=== PATIENT | female | born 1995 | race Caucasian/White ===

== ENCOUNTER 2018-06-09 09:26 | Day surgery (SDC) | payer MEDICAID, SELFPAY ==
--- NOTE | 2018-06-01 11:46 | PCM.HP.BLA ---
History and Physical Date of Admission: 06/09/18 Jody Underwood is a 22 year old female who presents for sterilzation consulation. Pt previously signed title 19- would like to proceed with laparosocpic bilateral salpingectomy. Pt is certain she does not want more children. Pt is currenlty on OCPs- doing well. Pt denies LARC or continuned use of BC. Pt denies CP, SOB, dizziness. Pt offers no other conerns today. PAST MEDICAL HISTORY Diagnosis Date ? NEGATIVE MEDICAL HISTORY PAST SURGICAL HISTORY Procedure Laterality Date ? TONSILLECTOMY AND ADENOIDECTOMY HX Bilateral age 14 FAMILY HISTORY Problem Relation Age of Onset ? COPD Paternal Grandmother ? Emphysema Paternal Grandmother ? COPD Paternal Grandfather ? Emphysema Paternal Grandfather Social History Marital status: Spouse name: Years of education: Number of children: 2 Social History Main Topics Smoking status: Never Smoker Smokeless tobacco: Never Used Alcohol use: No Drug use: No Sexual activity: Yes Partners with: Male control/protection: Injection Current Outpatient Prescriptions: Drospirenone-Ethinyl Estradiol (GIANVI, 28,) 3-0.02 mg per tablet Take 1 tablet by mouth once daily. ranitidine (ZANTAC) 150 mg tablet Take 1 tablet by mouth twice daily. ibuprofen (MOTRIN) 600 mg tablet Take 1 tablet by mouth every 6 hours as needed. FOR PAIN. No current facility-administered medications for this visit. Allergies As of Date: 06/01/2018 (No Known Allergies) Fully Assessed 06/01/2018 REVIEW OF SYSTEMS Abdomen: No abdominal pain, nausea, vomiting, diarrhea, or constipation. Bladder: No dysuria. Expanded ROS: GENERAL: Negative for fever Allergies and current medication updated:Yes EXAM: BP 98/56 Wt 107 lb (48.5kg) LMP 05/25/2018 GENERAL: pleasant, female in no apparent distress HEENT: Normocephalic and atraumatic NECK: full range of motion DERMATOLOGY: Normal, without lesions, non-icteric and non-hirsute CARDIAC: Regular rate and rhythm CHEST: Normal inspiratory effort NEURO: alert and oriented x3,exam grossly non-focal ASSESSMENT AND PLAN: Encounter Diagnosis ICD-10-CM 1. Request for sterilization Z30.2 2. Title 19 signed on 05/12/18. Pt declines LARC. Pt understand risk of regret 3. Pt has been counseled on risks/benefits and alternatives of surgery including but not limited to anesthesia, bleeding, infection, injury to pelvic structures including bowel, bladder, ureters and vessels. Pt wishes to proceed with surgery at this time. 4. Motrin given for post op pain Margoth Muro MD
[2018-06-09] VITALS (7 sets, daily range): BP systolic 94–141; BP diastolic 63–90; PULSE 82–103; RESP 14–18; TEMP 36.3–36.8; O2SAT 97–100; BMI 21.4
[2018-06-09 09:57] LABS: Hematocrit 40.1 % (37-47); Hemoglobin 13.3 g/dl (12.0-15.0); Mean Corp Hgb Conc 33.2 g/gl (32-36); Mean Corpuscular Hgb 28.7 pg (27.0-32.0); Mean Corpuscular Volume 86.6 fL (81-99); Mean Platelet Vol. 10.2 fl (6.2-12.0); Platelet Count 388 K/mm3 (150-450); RBC Distribution Width CV 12.4 % (11.6-14.6); Red Blood Count 4.63 M/mm3 (4.2-5.4); White Blood Count 7.1 K/mm3 (4.4-11.0)
[2018-06-09 09:59] LABS: Internal QC Validated? YES +Cl - CLEAR BKGD; Pregnancy, Urine Negative Negative
[2018-06-09 10:02] LABS: Scan Indicated on CBC? Y/N NO
--- NOTE | 2018-06-09 11:00 | FALS_PTH ---
PATIENT: TRACEE MOE LOC: [facility] [place] U#:[id number] AGE/SX: 22/F ROOM: RE06/09/[address]: Dr. Margoth Muro, MDDOB: 1995 BED: DIS: 06/09/2018 SPEC #: [id number] RECD: 06/09/18 14:10 STATUS: JJ LISA #: [id number] WHIT: 06/09/18 11:[address]: Margoth Muro DEPT: SURGICAL PATHOLOGY RECD BY: Cornel Bhat ENTERED: 06/09/18 14:38 SP TYPE: FALL TUBES OTHR DR: No Primary Care Phys Tissues: Fallopian tube Procedures: Surgery Specimen Level II HEADER OPERATION: Laparoscopic salpingectomy PRE-OP DIAGNOSIS: Request of sterilization TISSUE SUBMITTED: Bilateral fallopian tubes MICROSCOPIC DIAGNOSIS Bilateral fallopian tubes, salpingectomy: Two complete segments of fallopian tubes with no pathologic change. AM:juany 06/10/18 MICROSCOPIC DESCRIPTION Slides are reviewed. GROSS DESCRIPTION Received is one container labeled with the patient's name and designated bilateral fallopian tubes. The specimen consists of two fallopian tubes with an average length of 6 cm and has an average diameter of 0.5 cm. One fallopian tube is inked. Both fallopian tubes have normal fimbriated ends. No mass lesions are identified. Carton Gluing Machine Operator sections from both fallopian tubes are submitted in one cassette. / AM:juany 06/09/18 TC:4 CPT: 03380 x2
[2018-06-09] MEDS: Bupivacaine Mpf 0.5% 30 ML VIAL (11:52)
--- NOTE | 2018-06-09 12:15 | PCM.OPRPT ---
Report of Operation Date of Procedure: 06/09/18 Pre-Operative Diagnosis: desires sterilization Post-Operative Diagnosis: same Surgery/Procedure Performed:: Laparoscopic Bilateral salpingectomy Description of Surgical Findings:: Normal tubes and ovaries bilaterally cold roll inspector: MS Tia san Type of Anesthesia:: General Special Medications: marcaine Specimen's removed: bilateral fallopian tubes Drains: none Estimated Blood Loss (mL): 5 Description of Procedure: Operative note: After informed consent was obtained patient was taken to the operating room she was placed in supine position she was given anesthesia. She was then placed in the [facility] stirrups and she was prepped and draped in normal sterile fashion. Bladder was drained prior to the start of procedure approximately 100cc of clear yellow urine was expelled. At this time attention was turned to the vaginal portion where weighted speculum placed at posterior fornix vagina single-tooth tenaculum was used to gently grasp the internal the cervix. uterus was gently sounded to approximately 8cm. Uterine manipulator was placed without difficulty. Legs then placed in parallel with the abdomen the tenaculum and the weighted speculum were removed. 2 towel clamps were placed superior to umbilicus. After Marcaine was injected in umbilicus a small incision was made and a 5 mm trocar was placed under direct visualization. CO2 gas was used to insufflate the intra-abdominal cavity. Upon inspection no gross abnormalities uterus tubes and ovaries appeared to be normal. At this time then the RLQ and LLQ ports were placed again Marcaine was injected small incision was made a knife and the 5 mm trocar was placed. At this time then tubes were traced back to the fimbriated ends. Ligasure was used to coagulate and ligate along mesosalpynx bilaterally until tubes removed completely. Good hemostasis was appreciated. At this time procedure was deemed complete successful. The gas was desufflated on from the intra-abdominal cavity. The trochars were removed. Skin was closed using 4-0 Monocryl in a subcutaneous fashion. Dermabond glue was placed. Instrument lap and needle counts were correct ?2. The uterine manipulator was removed. Vaginal sweep was performed it was negative. There were no complications anticipated normal postoperative course for this patient. Grafts/Implants Used: none - Complications none - Admit VTE Documentation VTE Present on Admission: Yes VTE Mechan Device Prophylaxis: SCD's VTE Pharm Prophylaxis ordered?: No
--- NOTE | 2018-06-09 12:18 | OP.PCM_ITS ---
Report of Operation Date of Procedure: 06/09/18 Pre-Operative Diagnosis: desires sterilization Post-Operative Diagnosis: same Surgery/Procedure Performed:: Laparoscopic Bilateral salpingectomy Description of Surgical Findings:: Normal tubes and ovaries bilaterally pilling machine operator: MS Tia san Type of Anesthesia:: General Special Medications: marcaine Specimen's removed: bilateral fallopian tubes Drains: none Estimated Blood Loss (mL): 5 Description of Procedure: Operative note: After informed consent was obtained patient was taken to the operating room she was placed in supine position she was given anesthesia. She was then placed in the [facility] stirrups and she was prepped and draped in normal sterile fashion. Bladder was drained prior to the start of procedure approximately 100cc of clear yellow urine was expelled. At this time attention was turned to the vaginal portion where weighted speculum placed at posterior fornix vagina single-tooth tenaculum was used to gently grasp the internal the cervix. uterus was gently sounded to approximately 8cm. Uterine manipulator was placed without difficulty. Legs then placed in parallel with the abdomen the tenaculum and the weighted speculum were removed. 2 towel clamps were placed superior to umbilicus. After Marcaine was injected in umbilicus a small incision was made and a 5 mm trocar was placed under direct visualization. CO2 gas was used to insufflate the intra-abdominal cavity. Upon inspection no gross abnormalities uterus tubes and ovaries appeared to be normal. At this time then the RLQ and LLQ ports were placed again Marcaine was injected small incision was made a knife and the 5 mm trocar was placed. At this time then tubes were traced back to the fimbriated ends. Ligasure was used to coagulate and ligate along mesosalpynx bilaterally until tubes removed completely. Good hemostasis was appreciated. At this time procedure was deemed complete successful. The gas was desufflated on from the intra-abdominal cavity. The trochars were removed. Skin was closed using 4-0 Monocryl in a subcutaneous fashion. Dermabond glue was placed. Instrument lap and needle counts were correct ?2. The uterine manipulator was removed. Vaginal sweep was performed it was negative. There were no complications anticipated normal postoperative course for this patient. Grafts/Implants Used: none - Complications none - Admit VTE Documentation VTE Present on Admission: Yes VTE Mechan Device Prophylaxis: SCD's VTE Pharm Prophylaxis ordered?: No
--- NOTE | 2018-06-09 12:20 | DCINST_ITS ---
Discharge Diet: No Restrictions, - - Increase fluid intake for 48 hours. Discharge Activity: Return to Normal Activity, May Drive - when you are no longer taking narcotic pain medications., May Shower, May Take a Tub Bath - in 7 days., - - Ambulate often the next week after surgery. Additional Activity Instructions:: Nothing in the vagina for the next 5 days. Call your doctor if your incision/area has: Continuous Slow Oozing, Sudden Increased Bleeding, Increased Pain/ Swelling, Increased Redness, Foul Smelling Discharge, Swelling at the incision site Call your doctor if you observe: Fever of 101 or Higher Cleanse incision/area with: - - you have skin glue over incision sites- let soap and water run over them, dab dry. Allergies/Adverse Reactions: Allergies No Known Allergies Allergy (Verified 06/02/18 09:06) Medications to take at Discharge Ethinyl Estradiol/Drospirenone [Gianvi 3 mg-0.02 mg Tablet] 1 each PO DAILY 06/02/18 Primary Care Physician: Care Physician,No Primary [Primary Care Provider] - Test Results: Test results from this visit will be discussed in further detail at your follow- up appointment, if applicable. Please Follow Up With: Margoth Muro MD When: as scheduled
== END 2018-06-09 14:26 | disposition home or self-care (01) ==
LOC: SDC 09:27 → AC 09:29
PROVIDERS: Referring Provider Obstetrics & Gynecology; Visit Provider Obstetrics & Gynecology
PROC: (CPT 58661; principal; 2018-06-09 10:45)
DX: Z30.2 Encounter for sterilization (principal)
CPT/HCPCS: 58661; 36415; 81025; 85027; 88302; J7120; J2405

== ENCOUNTER 2018-10-13 11:40 | Day surgery (SDC) | payer MEDICAID, SELFPAY ==
[2018-06-09 09:59] VITALS: BMI 21.4
--- NOTE | 2018-09-06 10:25 | PCM.HP.BLA ---
History and Physical Date of Admission: 09/22/18 Expand All Collapse All Hide copied text Hover for details Pre-Op History and Physical ? HPI: The patient is a 22 year old female presenting for AUB- endometrial polyp on Ultrasound. Pt reports bleeding has slowed but still irregular. She is scheduled for Hysteroscopy D&C and Polypectomy with symphion at [facility], for aub and endometrial polyp on 09/22/18. Procedure discussed along with risks, benefits and complications. Other alternatives discussed for management. Consent form signed? Yes. ? ? PAST?MEDICAL?HISTORY PAST MEDICAL HISTORY Diagnosis Date ? NEGATIVE MEDICAL HISTORY ? ? ? PAST?SURGICAL?HISTORY PAST SURGICAL HISTORY Procedure Laterality Date ? SALPINGECTOMY ? 06/09/2018 ? bilateral salpingecetomy [facility]- benign pathology ? TONSILLECTOMY AND ADENOIDECTOMY HX Bilateral ? ? age 14 ? ? ? CURRENT?MEDICATIONS Current Outpatient Medications Medication Sig Dispense Refill ? ibuprofen (MOTRIN) 600 mg tablet Take 1 tablet by mouth every 6 hours as needed. FOR PAIN. 30 tablet 0 ? Drospirenone-Ethinyl Estradiol (GIANVI, 28,) 3-0.02 mg per tablet Take 1 tablet by mouth once daily. 1 Package 13 ? ranitidine (ZANTAC) 150 mg tablet Take 1 tablet by mouth twice daily. 60 tablet 2 ? No current facility-administered medications for this visit. ? ? ALLERGIES: Patient has no known allergies. ? PERSONAL HISTORY: SOCIAL?HISTORY Social History Socioeconomic History Marital status: Spouse name: Not on file Number of children: 2 Years of education: Not on file Highest education level: Not on file Social Needs Financial resource strain: Not on file Food insecurity - worry: Not on file Food insecurity - inability: Not on file Transportation needs - medical: Not on file Transportation needs - non-medical: Not on file Occupational History Not on file Tobacco Use Smoking status: Never Smoker Smokeless tobacco: Never Used Substance and Sexual Activity Alcohol use: No Drug use: No Sexual activity: Yes Partners: Male control/protection: Injection Other Topics Concerns: Not on file Social History Narrative Not on file ? FAMILY HISTORY: FAMILY?HISTORY FAMILY HISTORY Problem Relation Age of Onset ? COPD Paternal Grandmother ? ? Emphysema Paternal Grandmother ? ? COPD Paternal Grandfather ? ? Emphysema Paternal Grandfather ? ? ? REVIEW OF SYMPTOMS: negative except as noted above ? Report Summary: Overall impression: Anteverted uterus that is normal in size and contour Possible endometrial polyp noted within cavity Normal appearing bilateral ovaries No free fluid in pelvic CDS. Recommendations / therapy: Possible endometrial polyp noted. Consider hysteroscopic evaluation. Indication: Abnormal Uterine Bleeding. History: Last menstrual period: 06/09/2018. Gynecological History: Contraception: sterilization. Gynecological Ultrasonography: Uterus: normal, anteverted. Size: Longitudinal 83 mm. Anterio- posterior 38 mm. Transverse 47 mm. Volume: 77.6 ?ml. Endometrium: endometrium clearly visualized. Endometrium thickness total: 10.2 mm. Endometrial polyps: 8 mm x 6 mm x 14 mm. Right Ovary: normal. Visible. Morphology: multifollicular. Right Ovary size: 32 mm x 20 mm x 23 mm. Volume: 7.7 ml. Left Ovary: normal. Visible. Morphology: normal morphology. Left Ovary size: 27 mm x 26 mm x 17 mm. Volume: 6.2 ml. [place] / Pouch of [place]: no free fluid visible. Method: transvaginal ultrasound, color Doppler, 2 D, 3 D. Performed by:Paula Post RDMS Read by:Lizabeth Patel M.D. PHYSICAL EXAMINATION: ? VITALS: Blood pressure 98/60, weight 101 lb (45.8 kg), not currently . ? GENERAL: The patient is well nourished, well hydrated in no acute distress. , The patient is oriented to time, place, and person. NECK: normal range of motion LUNGS: Clear to auscultation bilaterally. no wheezes, rhonchi or rales HEART: Regular rate and rhythm, Normal heart sounds and No murmurs or gallops GENITALIA: exam deferred WET PREP: Not indicated ? IMPRESSION: AUB, endometrial polyp ? PLAN: Hysteroscopy, D&C, polypectomy with symphion ? Pt has been counseled on risks/benefits and alternatives of surgery including but not limited to anesthesia, bleeding, infection, injury to pelvic structures including bowel, bladder, ureters and vessels. Pt wishes to proceed with surgery at this time. ? Motrin given for post op pain ? I have reviewed and updated past medical and surgical history, medications and allergies Margoth Flores MD Office Visit on 09/06/2018
--- NOTE | 2018-09-28 16:45 | HP.PCM_ITS ---
Problem List (1) Abnormal uterine bleeding (AUB) Status: Acute (2) Endometrial polyp Status: Acute History and Physical Date of Admission: 10/13/18 Margoth Flores Physician SUPERVISOR RECLAMATION H&P Signed Encounter Date: 09/28/2018 Expand All Collapse All Hide copied text Hover for details Template added by Margoth Mcdanielntosh at 09/28/2018 4:25 PM Added by Margoth Gamezt Flores at 09/28/2018 4:25 PM Added by Margoth Gamezt Flores at 09/28/2018 4:25 PM Added by Margoth Gamezt Flores at 09/28/2018 4:40 PM Template added by Margoth Mcdanielntosh at 09/28/2018 4:25 PM Template added by Margoth Gamezt Flores at 09/28/2018 4:25 PM Template added by Margoth Gamezt Flores at 09/28/2018 4:25 PM Template added by Margoth Gamezt Flores at 09/28/2018 4:25 PM Template added by Margoth Gamezt Flores at 09/28/2018 4:25 PM Template added by Margoth Gamezt Flores at 09/28/2018 4:25 PM Added by Margoth Gamezt Flores at 09/28/2018 4:25 PM Added by Margoth Gamezt Flores at 09/28/2018 4:25 PM Added by Margoth Reevesytongt Flores at 09/28/2018 4:25 PM Added by Margoth Gamezt Flores at 09/28/2018 4:25 PM Template added by Margoth Reevesytongt Flores at 09/28/2018 4:25 PM Added by Margoth Gamezt Flores at 09/28/2018 4:25 PM Added by Margoth Gamezt Flores at 09/28/2018 4:25 PM Added by Margoth Gamezt Flores at 09/28/2018 4:25 PM Added by Margoth Gamezt Flores at 09/28/2018 4:25 PM Added by Margoth Flores at 09/28/2018 4:25 PM Added by Margoth Flores at 09/28/2018 4:25 PM Added by Margoth Flores at 09/28/2018 4:25 PM Added by Margoth Flores at 09/28/2018 4:25 PM Template added by Margoth Flores at 09/28/2018 4:25 PM Added by Margoth Flores at 09/28/2018 4:40 PM Template added by Margoth Flores at 09/28/2018 4:40 PM Jody Underwood is a 22 year old female who presents for?AUB. Pt lost?her insurance when her previous surgery was scheduled. ?Patient has history of abnormal uterine bleeding intermenstrual spotting, on ultrasound endometrial polyp was identified. ?Patient reports she is bleeding most of the month heavy at times.??Patient would like to proceed with hysteroscopy D&C polypectomy with the?symphion. ? PAST?MEDICAL?HISTORY PAST MEDICAL HISTORY Diagnosis Date ? NEGATIVE MEDICAL HISTORY ? ? PAST?SURGICAL?HISTORY PAST SURGICAL HISTORY Procedure Laterality Date ? SALPINGECTOMY ? 06/09/2018 ? bilateral salpingecetomy [facility]- benign pathology ? TONSILLECTOMY AND ADENOIDECTOMY HX Bilateral ? ? age 14 ? FAMILY?HISTORY FAMILY HISTORY Problem Relation Age of Onset ? COPD Paternal Grandmother ? ? Emphysema Paternal Grandmother ? ? COPD Paternal Grandfather ? ? Emphysema Paternal Grandfather ? ? SOCIAL?HISTORY Social History ??Socioeconomic History ?Marital status: ?Spouse name: Not on file ?Number of children: 2 ?Years of education: Not on file ?Highest education level: Not on file ??Social Needs ?Financial resource strain: Not on file ?Food insecurity - worry: Not on file ?Food insecurity - inability: Not on file ?Transportation needs - medical: Not on file ?Transportation needs - non-medical: Not on file ??Occupational History ?Not on file ??Tobacco Use ?Smoking status: Never Smoker ?Smokeless tobacco: Never Used ??Substance and Sexual Activity ?Alcohol use: No ?Drug use: No ?Sexual activity: Yes ?Partners: Male ? control/protection: Injection ??Other Topics ?Concerns: ?Not on file ??Social History Narrative ?Not on file ? CURRENT?MEDICATIONS ? Current Outpatient Medications: ranitidine (ZANTAC) 150 mg tablet Take 1 tablet by mouth twice daily. ibuprofen (MOTRIN) 600 mg tablet Take 1 tablet by mouth every 6 hours as needed. FOR PAIN. Drospirenone-Ethinyl Estradiol (GIANVI, 28,) 3-0.02 mg per tablet Take 1 tablet by mouth once daily. ? No current facility-administered medications for this visit.? Allergies As of Date: 09/28/2018 (No Known Allergies) Fully Assessed ?09/28/2018 ? ? REVIEW OF SYSTEMS Abdomen:?no pain? Bladder:?no dysuria.. Expanded ROS:?GENERAL:?Negative for?fever Allergies and current medication updated:Yes ? EXAM:?BP 102/62 Wt 101 lb (45.8kg) LMP 09/24/2018? ? ? GENERAL:?pleasant,??female in no apparent distress HEENT:?atraumatic NECK:?full range of motion DERMATOLOGY:?Normal, without lesions, non-icteric and non-hirsute CARDIAC: regular rate rhythm? CHEST:?clear bilaterally to auscultation? NEURO:?alert and oriented x3,exam grossly non-focal EXTREMITIES:?normal ? ASSESSMENT AND PLAN:?? Encounter Diagnosis ? ? ICD-10-CM ? 1. Abnormal uterine bleeding (AUB) N93.9 ? ? 2.?Hysteroscopy, D&C, polypectomy with?symphion?was reviewed with the patient including the risks benefits and alternatives. ?Patient would like to proceed. ?Consent was obtained again. Pt has been counseled on risks/benefits and alternatives of surgery including but not limited to anesthesia, bleeding, infection, injury to pelvic structures including bowel, bladder, ureters and vessels. ?Pt wishes to proceed with surgery at this time. ? ? Margoth Muro MD ? Office Visit on 09/28/2018
[2018-10-13] VITALS (7 sets, daily range): BP systolic 100–110; BP diastolic 74–79; PULSE 85–98; RESP 16–20; TEMP 36.1–36.8; O2SAT 95–99; BMI 19.5
[2018-10-13 12:25] LABS: Internal QC Validated? YES +Cl - CLEAR BKGD; Pregnancy, Urine Negative Negative
[2018-10-13 12:31] LABS: Hematocrit 42.3 % (37-47); Hemoglobin 14.3 g/dl (12.0-15.0); Mean Corp Hgb Conc 33.8 g/gl (32-36); Mean Corpuscular Hgb 28.5 pg (27.0-32.0); Mean Corpuscular Volume 84.4 fL (81-99); Mean Platelet Vol. 9.9 fl (6.2-12.0); Platelet Count 438 K/mm3 (150-450); RBC Distribution Width CV 12.7 % (11.6-14.6); RBC Distribution Width SD 38.8 fl (35.1-43.9); Red Blood Count 5.01 M/mm3 (4.2-5.4); White Blood Count 7.1 K/mm3 (4.4-11.0)
[2018-10-13 12:39] LABS: Scan Indicated on CBC? Y/N NO
--- NOTE | 2018-10-13 13:10 | EMB_PTH ---
PATIENT: TRACEE MOE LOC: [facility] [place] U#:[id number] AGE/SX: 22/F ROOM: RE10/13/[address]: Dr. Margoth Muro, MDDOB: 1995 BED: DIS: 10/13/2018 SPEC #: [id number] RECD: 10/13/18 16:45 STATUS: JJ LISA #: [id number] WHIT: 10/13/18 13:[address]: Margoth Muro DEPT: SURGICAL PATHOLOGY RECD BY: Ricki Yusuf ENTERED: 10/14/18 11:31 SP TYPE: ENDOM BX/C YEISON DR: Dr. Ortiz Mohan MD Tissues: Endometrium, NOS Procedures: Surgery Specimen Level IV HEADER OPERATION: Hysteroscopy, D & C Symphion PRE-OP DIAGNOSIS: Abnormal uterine bleeding, endometrial polyp TISSUE SUBMITTED: Endometrial curettings MICROSCOPIC DIAGNOSIS Endometrial curettings: Proliferative endometrium. Fragments of benign endocervical mucosa. See comment. HILDA:juany 10/17/18 COMMENT Obvious fragments of benign endometrial polyps are not seen. Clinical correlation and appropriate follow up are necessary. MICROSCOPIC DESCRIPTION Slides are reviewed. GROSS DESCRIPTION Received in fixative is one container labeled with the patient's name and designated endometrial curettings. The specimen consists of multiple fragments of hemorrhagic soft tissue that in aggregate measure 5 x 3 x 0.3 cm. The entire specimen is submitted in two cassettes. / HILDA:juany 10/14/18 TC:5 CPT: 60540
--- NOTE | 2018-10-13 14:42 | DCINST_ITS ---
Discharge Diet: No Restrictions Discharge Activity: Return to Normal Activity, May Shower, May Take a Tub Bath - in 2 weeks. Allergies/Adverse Reactions: Allergies No Known Allergies Allergy (Verified 10/10/18 09:07) Medications to take at Discharge NK 10/10/18 Primary Care Physician: Ortiz Mohan MD [Primary Care Provider] - Test Results: Test results from this visit will be discussed in further detail at your follow- up appointment, if applicable.
--- NOTE | 2018-10-13 14:44 | PCM.OPRPT ---
Problem List (1) Abnormal uterine bleeding (AUB) Status: Acute (2) Endometrial polyp Status: Acute Report of Operation Date of Procedure: 10/13/18 Pre-Operative Diagnosis: AUB, endometrial polyp Post-Operative Diagnosis: same Surgery/Procedure Performed:: Hysteroscopy, D&C Description of Surgical Findings:: Moderate amount of endometrial tissue present. Appeared to be a polyp-like structure arising from the right lateral aspect. Sharp curettage was performed and the polyp was removed without difficulty Type of Anesthesia:: MAC Specimen's removed: endometrial currettings Drains: none Estimated Blood Loss (mL): 10 Fluids Replaced: 1000cc Description of Procedure: Informed consent was obtained the patient was taken the operating room she was placed in supine position. She was given anesthesia. She was then placed in the [facility] where she was prepped and draped in the normal sterile fashion. At this time the weighted speculum was placed in the posterior fornix of vagina. Single-tooth tenaculum was used to gently grasp the anterior lip the cervix. At this time the uterine cavity was sounded to approximately 7 cm. Gentle dilatation was performed once adequate dilatation of the cervix was achieved the hysteroscope using normal saline as a distention medium was placed. abundant Endometrial tissue possible polyp arising from the lateral aspect. Otherwise no gross abnormalities. Sharp curettage was performed. Moderate amount of endometrial tissue removed along with possible polyp. Hysteroscope was then reinserted and revealed endometrium thing with no polyp-like structure present. This will be sent to pathology for evaluation. Procedure was deemed complete successful there are no complications. Anticipated normal postoperative course. Instrument lap count correct ?2. Vaginal Sweep was negative. Grafts/Implants Used: none - Complications none - Admit VTE Documentation VTE Present on Admission: Yes VTE Mechan Device Prophylaxis: SCD's VTE Pharm Prophylaxis ordered?: No
== END 2018-10-13 16:10 | disposition home or self-care (01) ==
LOC: SDC 11:40 → ACINP 11:42 → AC 11:47
PROVIDERS: Family Provider Family Medicine; PCP Family Medicine; Referring Provider Obstetrics & Gynecology; Visit Provider Obstetrics & Gynecology
PROC: 0UB98ZZ Excision of Uterus, Via Natural or Artificial Opening Endoscopic (ICD-10-PCS; CPT 58558; principal; 2018-10-13 12:55)
DX: N84.0 Polyp of corpus uteri (principal); K21.9 Gastro-esophageal reflux disease without esophagitis
CPT/HCPCS: 00952; 58558; 81025; 85027; 88305; J7120; J2405

== ENCOUNTER 2019-05-21 09:18 | Emergency (ER) | payer MEDICAID, SELFPAY ==
[2018-10-13 12:22] VITALS: BMI 19.5
[2019-05-21 09:19] VITALS: BP 123/83; PULSE 97; RESP 16; TEMP 36.5; O2SAT 99; BMI 20.2
--- NOTE | 2019-05-21 09:48 | ED.DCSUM_ITS ---
History of Present Illness Informant: Patient Onset: Yesterday Context: Gradual Onset Timing: Continuous Quality: Nausea Location: Stomach Current Severity: Moderate Maximum Severity: Moderate Worsened by: Food Relieved by: nothing Associated Symptoms: Flulike symptoms Narrative: 23-year-old female presents with concern for accidental Tylenol overdose. Patient diagnosed yesterday with influenza B. She states her mother told her to take 4 tablets of ibuprofen every 4 hours to help with her myalgias and fever. However the patient states that this morning she noticed that the bottle of medicine she was taking which she thought was ibuprofen was actually acetamino phen. Since 11:30 PM last night she has taken 3 separate doses of 4 tablets each of 500 mg of acetaminophen. She feels nauseated. She called her mom who told her to come to the emergency department. Patient states this was accidental and she has not had thoughts of suicide or homicide. She has not taken any other medications during this time span and did not take any Tylenol yesterday or the day before. She has had continued flulike symptoms with cough myalgias sore throat and just general malaise and fatigue. No history of liver disease. Denies IV drug abuse. She denies alcohol use. She denies vomiting or diarrhea she is not lightheaded or dizzy. Prior similar symptoms: No Recent Illness/Hospitalization: No <Rashad Wetzel - Last Filed: 05/21/19 12:36> <Roxanne Small - Last Filed: 05/21/19 13:55> Chief Complaint: Overdose Past Medical History Prior records reviewed: Yes Past Medical History: None Surgical History: no surgical history Lives: With Family Smoking Status: Never smoker Alcohol: Occasional <Rashad Wetzel - Last Filed: 05/21/19 12:36> <Roxanne Small - Last Filed: 05/21/19 13:55> - Allergies and Home Meds Allergies/Adverse Reactions: Allergies No Known Allergies Allergy (Verified 05/21/19 09:19) Primary Care Physician: Ortiz Mohan MD [Primary Care Provider] - Review of Systems All systems negative except as indicated General: Reports: Chills, Fever. Denies: Malaise, Subjective, Sweats, Weight loss Eyes: Denies: Visual changes - bilaterally, Blurred Vision - bilaterally, Diplopia ENT: Reports: Rhinorrhea, Sore throat. Denies: Bilateral ear pain, Left ear pain, Right ear pain Cardiovascular: Denies: Chest pain, Palpitations, Heart racing Respiratory: Reports: Cough. Denies: Dyspnea, Sputum, Dyspnea on exertion, Orthopnea, Paroxysmal nocturnal dyspnea Gastrointestinal: Reports: Nausea. Denies: Abdominal pain, Vomiting, Diarrhea, Constipation, Melena, Hematochezia Genitourinary: Denies: Dysuria, Hematuria, Frequency Musculoskeletal: Reports: Myalgias. Denies: Arthralgias, Neck pain, Back pain, Swelling, Extremity Pain Skin: Denies: Rash, Abscess, Abrasions, Wounds Neurological: Denies: Headache, Weakness, Parasthesia, Numbness Psych: Denies: Depression, Anxiety, Suicidal thoughts <Rashad Wetzel - Last Filed: 05/21/19 12:36> Physical Exam Vital Signs/Narrative: Vital Signs Temp Pulse Resp BP Pulse Ox 05/21/19 09:19 97.7 F L 97 16 123/83 H 99 Inital Vital Signs reviewed: Yes General: Well nourished, Well developed, No Acute Distress Head: Normocephalic, Atraumatic Eyes: Perrl, EOMI ENT: Moist mucous membranes, No rhinorrhea, TM's clear Neck: Supple, Nontender, No lymphadenopathy Cardiovascular: Regular rhythm, No murmurs, Tachycardia Respiratory: No distress, CTA bilaterally, Chest nontender Abdomen: Soft, Nontender, Nondistended, Normal bowel sounds, No masses Back: Nontender, Normal Inspection Extremities: Nontender, No edema Skin: Normal color, No rash Neurological: Alert, Oriented x3 Psychological: Normal affect, Normal Mood. Negative for: Depressed, Tearful, Agitated <Rashad eWtzel - Last Filed: 05/21/19 12:36> Vital Signs/Narrative: Vital Signs Pulse Resp BP Pulse Ox 05/21/19 13:03 87 16 97/71 97 05/21/19 12:22 84 17 98/71 97 05/21/19 10:02 95 19 H 97/70 100 <Roxanne Small - Last Filed: 05/21/19 13:55> Diagnostic/Tx/Re-eval - Medical Decision Making Immediately after patient arrival I contacted poison control who recommended that we obtain laboratory work-up including a Tylenol level. They were concerned that if the patient's Tylenol level was 50 or greater that she would require reversal. Patient's Tylenol level returned at 26 and her LFTs were normal. Her ALT was 21 and her AST was 14. I then contacted poison control again who recommended we obtain 1 more Tylenol level to make sure that the number was going down and that if it were the patient would be safe to be discharged. Patient's repeat Tylenol level was 24.6. Patient remained stable throughout her ED stay she is not having any abdominal pain or vomiting and overall appears well and has normal stable vital signs. Patient will be discharged home. I will write her prescription for Zofran and ibuprofen. Refrain from Tylenol until she follows up with her primary care physician this week. She is agreeable with plan and all questions were answered. She was discharged home with return precautions. <Rashad Wetzel - Last Filed: 05/21/19 12:36> - Medical Decision Making I have personally performed a [id number] assessment of the patient and have reviewed the PA note. My hadley findings include 23-year-old female presents after accidentally ingesting Tylenol. She states she believed that she was taking ibuprofen. Labs are unremarkable. Repeat Tylenol level is also normal. She will be discharged. Advised to follow-up with primary care physician. <Roxanne Small - Last Filed: 05/21/19 13:55> ED Disposition <Rashad Wetzel - Last Filed: 05/21/19 12:36> <Roxanne Small - Last Filed: 05/21/19 13:55> - Plan for ED Patient: Disposition: Home or Assisted Living Diagnosis: Accidental acetaminophen overdose Instructions: OVERDOSE, Accidental (Adult) Prescriptions: Ibuprofen 600 mg PO 4X/DAY PRN PRN #40 tab PRN Reason: Fever Prescription Printed Ondansetron [Zofran Odt] 4 mg PO Q8H PRN PRN #10 tab PRN Reason: Nausea Prescription Printed Referrals: Ortiz Mohan MD [Primary Care Provider] -
[2019-05-21] MEDS: Ondansetron 4 MG/2 ML Vial IV (09:52)
[2019-05-21 09:59] LABS: Absolute Lymphocyte Count 1.62 X10^3/uL (0.83-4.51); Basophil# 0.02 X10^3/uL; Basophil% 0.7 % (0-1); Eosinophil# 0.01 X10^3/uL; Eosinophils% 0.3 % (0-5); Hematocrit 42.5 % (37-47); Hemoglobin 14.1 g/dL (12.0-15.0); Lymphocyte # 1.62 X10^3/ul (4.0); Lymphocyte % 53.3 % (19-41); Mean Corp Hgb Conc 33.2 g/dL (32-36); Mean Corpuscular Hgb 29.1 pg (27.0-32.0); Mean Corpuscular Volume 87.6 fL (81-99); Monocyte# 0.39 X10^3/uL; Monocyte% 12.8 % (0-10); NRBC Flagged by Analyzer 0 % (0-5); Neutrophil % 32.9 % (47-70); Platelet Count 335 K/mm3 (150-450); RBC Distribution Width CV 12.6 % (11.6-14.6); RBC Distribution Width SD 40.2 fl (35.1-43.9); Red Blood Count 4.85 M/mm3 (4.2-5.4)
[2019-05-21 10:02] VITALS: BP 97/70; PULSE 95; RESP 19; O2SAT 100
[2019-05-21 10:15] LABS: ALB/GLOB Ratio 0.9 RATIO (0.9-2.4); AST(SGOT) 14 U/L (15-37); Alanine Aminotransfer ALT/SGPT 21 U/L (13-56); Albumin, Serum 3.3 g/dL (3.2-5.0); Alkaline Phosphatase 47 U/L (45-117); Anion Gap 4 (5-15); BUN 8 mg/dL (7-18); BUN/Creat Ratio 11.1 RATIO (10-20); Calcium,Total 8.5 mg/dL (8.5-10.1); Chloride 111 mmol/L (98-107); Creatinine, Serum 0.72 mg/dL (0.55-1.02); EST Glomerular Filtration Rate 105 mL/min (>60); Est Glom Filt Rate - Afr Amer 127 mL/min (>60); Estimated Creatinine Clearance 85.53 ml/min; Globulin 3.8 g/dL (2.2-4.2); Glucose 92 mg/dL (74-106); Potassium 3.6 mmol/L (3.5-5.1); Protein, Total 7.1 g/dL (6.4-8.2); Sodium Level 140 mmol/L (136-145)
[2019-05-21 10:19] LABS: Internal QC Validated? YES +Cl - CLEAR BKGD; Pregnancy, Urine Negative Negative
[2019-05-21 11:00] LABS: Acetaminophen (Tylenol) Level 26.1 ug/mL (10.0-30.0)
[2019-05-21 12:22] VITALS: BP 98/71; PULSE 84; RESP 17; O2SAT 97
[2019-05-21 12:34] LABS: Acetaminophen (Tylenol) Level 24.6 ug/mL (10.0-30.0)
[2019-05-21 13:03] VITALS: BP 97/71; PULSE 87; RESP 16; O2SAT 97
== END 2019-05-21 13:04 | disposition home or self-care (01) ==
PROVIDERS: Emergency Provider Physician Assistant Medical; PCP Family Medicine
DX: T39.1X1A Poisoning by 4-Aminophenol derivatives, accidental (unintentional), initial encounter (principal); Y92.9 Unspecified place or not applicable; J10.1 Influenza due to other identified influenza virus with other respiratory manifestations
CPT/HCPCS: 80053; 80329; 81025; 85025; 96374; 99284; A4216; G0480; J2405

== ENCOUNTER → 2021-01-22 10:41 | Outpatient (CLI) | payer MEDICAID, SELFPAY ==
[2021-01-22 12:09] LABS: Erythrocyte Sedimentation Rate 1 mm/hr (0-30)
[2021-01-22 12:24] LABS: CRP < 2.90 mg/L (0.0-3.0); Rheumatoid Factor < 10.0 IU/mL (<15)
[2021-01-23 15:22] LABS: ANTINUCLEAR ANTIBODIES DIRECT Negative (Negative)
[2021-01-24 20:08] LABS: Thyroid Peroxidase AB 20 IU/mL (0-34)
[2021-01-24 20:18] LABS: Arsenic 7245 < 1 ug/L (2-23); Lead, Blood < 1 ug/dL (0-4); Mercury, Blood 85324 < 1.0 ug/L (0.0-14.9); Thyroglobulin Antibody < 1.0 IU/mL (0.0-0.9)
== END ==
PROVIDERS: PCP Internal Medicine; Referring Provider Internal Medicine; Visit Provider Internal Medicine
DX: L65.9 Nonscarring hair loss, unspecified (principal); N93.9 Abnormal uterine and vaginal bleeding, unspecified; M25.50 Pain in unspecified joint
CPT/HCPCS: 36415; 82175; 83655; 83825; 85652; 86038; 86140; 86225; 86235; 86376; 86431; 86800

== ENCOUNTER 2021-05-01 09:56 | Outpatient (CLI) | payer MEDICAID, SELFPAY ==
--- NOTE | 2021-05-01 09:59 | US_ITS ---
STUDY: RENAL ULTRASOUND - COMPLETE REASON FOR EXAM: Female, 25 years old. UTI TECHNIQUE: Ultrasound evaluation of the kidneys was performed with real-time and static young-scale imaging. COMPARISON: None. FINDINGS: RIGHT KIDNEY: Normal location of the right kidney, which is normal in size. The right kidney measures 10.2 cm x 4.6 cm x 4.6 cm. There is a normal cortex of the right kidney. The renal cortex measures 1.2 cm. There is no right renal mass or cyst. There are no right renal calculi. There is no right hydronephrosis. DISTAL RIGHT URETER: There is non-visualization of the distal right ureter. There is no demonstrated right ureterovesical junction calculus. There is a visualized right ureteral jet. LEFT KIDNEY: Normal location of the left kidney, which is normal in size. The left kidney measures 9.5 cm x 4.8 cm x 4.1 cm. There is a normal cortex of the left kidney. The renal cortex measures 1.2 cm. There is no left renal mass or cyst. There are no left renal calculi. There is no left hydronephrosis. DISTAL LEFT URETER: There is non-visualization of the distal left ureter. There is no demonstrated left ureterovesical junction calculus. There is a visualized left ureteral jet. BLADDER: The distended urinary bladder has a volume of 237 ml. The empty urinary bladder has a volume of 8.1 ml. There is a normal wall thickness of the distended urinary bladder. There is no demonstrated mass within the urinary bladder. There are no demonstrated bladder calculi. US/Kidney and Bladder IMPRESSION: Normal ultrasound of the kidneys and urinary bladder. Electronically Signed: Dakota Zimmer MD at 15:09 EST ,
== END 2021-05-01 23:59 | disposition short-term general hospital (02) ==
PROVIDERS: PCP Internal Medicine; Referring Provider Urology; Visit Provider Urology
DX: N39.0 Urinary tract infection, site not specified (principal)
CPT/HCPCS: 76770

== ENCOUNTER 2021-05-19 07:36 | Day surgery (SDC) | payer MEDICAID, SELFPAY ==
[2021-05-19] VITALS (7 sets, daily range): BP systolic 94–117; BP diastolic 66–78; PULSE 76–95; RESP 12–16; TEMP 36–37.1; O2SAT 96–100; BMI 20.9
[2021-05-19] MEDS: Lactated Ringers 1,000 ML 15 ML IV (07:50)
[2021-05-19] MEDS: Cefazolin 2 GM in 0.9% Normal Saline 100 ML IV (09:06)
--- NOTE | 2021-05-19 09:48 | PCM.DC ---
Discharge Instructions Diet Discharge Diet: No restrictions Activity Discharge Activity: Return to Normal Activity May resume sexual activity in: No Restrictions Dressing / Incision Call your doctor if you observe: Fever of 101 or Higher, Inability to urinate and Inability to have a bowel movement Follow Up Care Please Follow Up With: Indiana Cordero MD When: in office in 2-3 weeks Test Results: Test results from this visit will be discussed in further detail at your follow-up appointment, if applicable. Discharge Plan Admission Attending Provider: Indiana Cordero Primary Care Provider: Caitlyn Lloyd Discharge Orders/Prescriptions Prescriptions: New oxycodone-acetaminophen [oxycodone-acetaminophen] 1 TABLET tablet 2 tab PO Q8H PRN PRN (Reason: Pain) 7 Days Qty: 10 RF: 0 cephalexin [cephalexin] 500 MG capsule 500 mg PO Q12 3 Days Qty: 6 RF: 0 phenazopyridine [Pyridium] 200 MG tablet 200 mg PO TID PRN PRN (Reason: Bladder Spasms) 7 Days Qty: 30 RF: 0 Continued biotin 10 mg tablet 10 mg PO DAILY RF: 0 magnesium oxide 400 mg magnesium tablet 400 mg PO DAILY RF: 0 Probiotic 3 billion cell capsule 3,000 mmu cells PO DAILY RF: 0 milkthistle 1 cap PO DAILY RF: 0 cholecalciferol (vitamin D3) 125 mcg (5,000 unit) capsule 125 mcg PO DAILY RF: 0 pantoprazole 20 mg tablet,delayed release (DR/EC) 20 mg PO DAILY PRN (Reason: Indigestion) RF: 0 oil or oregeno 10 ml PO PRN PRN (Reason: NOT SURE) RF: 0 ibuprofen 600 MG tablet 600 mg PO 4X/DAY PRN PRN (Reason: Fever) Qty: 40 RF: 0 ondansetron 4 MG tablet 4 mg PO Q8H PRN PRN (Reason: Nausea) Qty: 10 RF: 0 buspirone 10 mg Tablet 10 mg PO DAILY RF: 0 Referrals / Follow Up: Caitlyn Lloyd MD [Primary Care Provider] - Disposition Disposition (needs filled in before D/C Order can be placed): Home, Self Care
--- NOTE | 2021-05-19 09:53 | PCM.OPRPT ---
Problems Associated Problem List Diagnoses (1) Urinary frequency: (2) Urinary tract infection: (3) Mixed incontinence: Report of Operation Date of Procedure: 05/19/21 Pre-Operative Diagnosis: urinary tract infections, urinary frequency, mixed incontinence Post-Operative Diagnosis: same Surgery/Procedure Performed:: cystoscopy, hydrodistention, pelvic exam under anesthesia Description of Surgical Findings:: Bladder capacity of 500 cc, no glomerulations, no Hunner's ulcers. Surgeon: Indiana Cordero Type of Anesthesia: MAC Description of Procedure: The patient is a 25-year-old female with recurrent urinary tract infections, urinary frequency and mixed incontinence. She presents for evaluation under anesthesia. Informed consent has been obtained. The patient was taken to the operating room and placed on the operating room table. Anesthesia monitored the head, neck, airway, IV access and vital signs throughout the case. Once anesthesia was appropriately administered the patient was placed into dorsal lithotomy position was prepped and draped in usual sterile fashion. On pelvic examination, there were no findings of trigger points in her pelvic floor. There is no prolapse. There is no pelvic mass. There are no abnormalities identified. At this time, the cystoscope was inserted through the urethra under direct visualization into the urinary bladder. There were no abnormalities of the urethra. The bladder mucosa was visualized in its entirety. There were no areas of ulceration, mass, foreign body or abnormality identified. At this time the bladder was filled to capacity and allowed to sit for 2 minutes. The capacity was measured at 450 cc. There was no terminal hematuria present. This point the cystoscope was used to reevaluate the bladder mucosa and the distention was repeated. There were no glomerulations identified. On filling the bladder, the capacity was measured at approximately 500 cc. The patient's bladder was left for 2 minutes and then emptied. She was awakened and taken to the recovery room in good condition. There were no complications during this procedure. Grafts/Implants Used: none Complications none Admit VTE Documentation VTE Present on Admission: Yes VTE Mechan Device Prophylaxis: SCD's VTE Pharm Prophylaxis ordered?: No Reason prophylaxis not ordered:: Treatment Not Indicated
== END 2021-05-19 23:59 | disposition home or self-care (01) ==
LOC: SDC 07:36 → AC 07:37
PROVIDERS: PCP Internal Medicine; Referring Provider Urology; Visit Provider Urology
PROC: 0T7B7ZZ Dilation of Bladder, Via Natural or Artificial Opening (ICD-10-PCS; CPT 52260; principal; 2021-05-19 08:55)
DX: N39.0 Urinary tract infection, site not specified (principal); N39.46 Mixed incontinence; Z87.440 Personal history of urinary (tract) infections; K59.04 Chronic idiopathic constipation; F41.9 Anxiety disorder, unspecified; F32.A Depression, unspecified; Z79.899 Other long term (current) drug therapy
CPT/HCPCS: 52260; 00910; 87426; C9803; J7120; J2405

== ENCOUNTER 2021-09-05 18:47 | Emergency (ER) | payer MEDICAID, SELFPAY ==
[2021-09-05 18:48] VITALS: BP 106/80; PULSE 74; RESP 15; TEMP 36.8; O2SAT 98; BMI 20.2
--- NOTE | 2021-09-05 19:31 | EKG12_ITS ---
Test Reason : DYSRHYTHMIA Blood Pressure : / mmHG Vent. Rate : 097 BPM Atrial Rate : 097 BPM P-R Int : 136 ms QRS Dur : 078 ms QT Int : 344 ms P-R-T Axes : 072 074 039 degrees QTc Int : 436 ms Normal sinus rhythm Normal ECG Confirmed by MURIEL GORDILLO, MAGAN ([id number]), book editor JESUS LOPEZ ([id number]) on 09/08/2021 1:01:24 PM Referred By: OLMAN Confirmed By:MAGAN LLAMAS MD
--- NOTE | 2021-09-05 19:33 | ED.VIS.GI ---
HPI HPI - GI History of Present Illness Chief Complaint: Abd Pain Informant: patient Narrative Narrative: Patient's been having epigastric pain for 2 or 3 days. She told me she never had this before but I look in her med record and it looks like she has been on pantoprazole and had gastritis and reflux issues. She states is a burning sensation in the epigastrium. Right before eating or when she eats it gets real sharp. A little after eating it calms down for couple hours and then it comes back. Commonly wakes her up at night. Does not radiate anywhere. She does not have sour taste in the throat though. No change in bowel habits. No black or blood. No nausea or vomiting. She states that couple times she has felt nauseated but does not now. She tried Pepcid and it got a little bit better but did come back. Only surgery is having tubes tied. No history of biliary disease. [facility] Medical History Anxiety Depression Dietary restriction Heartburn Mixed incontinence Non-smoker Tubal ligation evaluation Urinary frequency Urinary tract infection Wears glasses Home Medications ibuprofen 600 mg PO 4X/DAY PRN PRN #40 tab 05/21/19 [Rx Last Taken Unknown] ondansetron 4 mg PO Q8H PRN PRN #10 tab 05/21/19 [Rx Last Taken Unknown] biotin 10 mg tablet 10 mg PO DAILY 01/22/21 [History Last Taken Unknown] cholecalciferol (vitamin D3) 125 mcg (5,000 unit) capsule 125 mcg PO DAILY 01/22/21 [History Last Taken Unknown] lactobacillus combination no.4 3 billion cell capsule 3,000 mmu cells PO DAILY 01/22/21 [History Last Taken Unknown] magnesium oxide 400 mg PO DAILY 01/22/21 [History Last Taken Unknown] milkthistle 1 cap PO DAILY 01/22/21 [History Last Taken Unknown] oil or oregeno 10 ml PO PRN PRN 01/22/21 [History Last Taken Unknown] pantoprazole 20 mg tablet,delayed release 20 mg PO DAILY PRN 01/22/21 [History Last Taken Unknown] buspirone 10 mg PO DAILY 05/12/21 [History Last Taken Unknown] cephalexin 500 mg PO Q12 3 Days #6 capsule 05/19/21 [Rx Last Taken Unknown] oxycodone-acetaminophen 2 tab PO Q8H PRN PRN 7 Days #10 tab 05/19/21 [Rx Last Taken Unknown] phenazopyridine [Pyridium] 200 mg PO TID PRN PRN 7 Days #30 tab 05/19/21 [Rx Last Taken Unknown] omeprazole 20 mg PO DAILY 28 Days #28 cap 09/05/21 [Rx Last Taken Unknown] Allergy/AdvReac Type Severity Reaction Status Date / Time No Known Allergies Allergy Verified 09/05/21 18:51 Family History Other Asthma CVA (cerebral vascular accident) Thyroid disorder Surgical History History of hysteroscopy History of tonsillectomy and adenoidectomy Hx of tubal ligation Social History Smoking Status: Never smoker alcohol intake: never substance use type: does not use ROS ROS ED Constitutional Constitutional ED: Denies chills or fever(s) ENT ENT ED: Denies rhinorrhea or sore throat Cardiovascular Cardiovascular: Denies chest pain or palpitations Respiratory/Chest Respiratory/Chest: Denies cough or dyspnea Gastrointestinal Gastrointestinal: Reports abdominal pain and nausea; Denies constipation, diarrhea, melena or vomiting Genitourinary Genitourinary ED: Denies dysuria or hematuria Musculoskeletal Musculoskeletal: Denies back pain Integumentary Denies rash Neurologic Neurologic: Denies headache(s) Psychiatric Psychiatric: Reports anxiety Endocrine Endocrinology: Denies polydipsia or polyuria Hematologic/Lymphatic Hematologic/Lymphatic: Denies easy bleeding or easy bruising Allergic/Immunologic Allergic/Immunologic ED: Denies urticaria EXAM Physical Exam Const Vital Signs: 09/05/21 18:48 Temperature 98.2 F Temperature Source Temporal Pulse Rate 74 Respiratory Rate 15 Blood Pressure 106/80 Blood Pressure Mean 88 Pulse Ox 98 Oxygen Delivery Method Room Air Positive well nourished and well developed General Appearance ED: well developed and NAD HEENT Reports moist mucous membranes normocephalic and atraumatic Eyes EOMs intact bilaterally Neck no lymphadenopathy and no JVD Resp normal respiratory effort and clear to auscultation bilaterally Cardio regular rate, regular rhythm and no murmurs GI non-distended GI Narrative: Minimal epigastric tenderness without rebound or guarding. No mass. No right upper quadrant or left upper quadrant tenderness. No lower abdominal tenderness. Auscultation: normoactive bowel sounds Palpation: soft Back/Spine no CVA tenderness Extremity General Extremety ED: Negative for tenderness Neuro Sensorium / Orientation: alert and oriented to person Psych mental status grossly normal Skin Rashes: no rashes MDM MDM MDM Narrative Medical decision making narrative: Patient's blood work including CBC electrolytes liver function test are not showing any marked abnormalities. Lipase is negative. Patient states that she was on pantoprazole for a feeling as though she got bubbles in her esophagus when she swallowed. It was different than this. We will get her on a proton pump inhibitor. We discussed returning with fevers chills continual pain blood in the stool or other concerns. Lab Data Attestation: I reviewed the patient's lab results. Labs: Laboratory Results - last 24 hr 09/05/21 09/05/21 19:45 19:45 WBC 8.7 RBC 4.48 Hgb 13.4 Hct 39.1 MCV 87.3 MCH 29.9 MCHC 34.3 RDW Std Deviation 39.4 RDW Coeff of Leighton 12.2 Plt Count 334 MPV 10.5 Immature Gran % (Auto) 0.300 Neut % (Auto) 43.7 L Lymph % (Auto) 49.0 H Sargent % (Auto) 5.6 Eos % (Auto) 0.8 Baso % (Auto) 0.6 Absolute Neuts (auto) 3.8 Absolute Lymphs (auto) 4.25 Nucleated RBC % 0 Sodium 140 Potassium 3.7 Chloride 109 H Carbon Dioxide 26.0 Anion Gap 5 BUN 6 L Creatinine 0.70 Estim Creat Clear Calc 86.44 Est GFR (MDRD) Af Amer 129 Est GFR (MDRD) Non-Af 106 BUN/Creatinine Ratio 8.6 L Glucose 79 Calcium 9.3 Total Bilirubin 0.50 AST 16 ALT 16 Alkaline Phosphatase 46 Total Protein 7.6 Albumin 4.1 Globulin 3.5 Albumin/Globulin Ratio 1.2 Lipase 80 Discharge Plan Triage Chief Complaint: Abd Pain ED Provider: Yanick Soliman Dx/Rx/DC Orders Clinical Impression: Acute epigastric pain Instructions: ED Epigastric Pain Uncertain Cause Prescriptions: New omeprazole 20 mg capsule,delayed release(DR/EC) 20 mg PO DAILY 28 Days Qty: 28 RF: 0 No Action biotin 10 mg tablet 10 mg PO DAILY RF: 0 magnesium oxide 400 mg magnesium tablet 400 mg PO DAILY RF: 0 Probiotic 3 billion cell capsule 3,000 mmu cells PO DAILY RF: 0 milkthistle 1 cap PO DAILY RF: 0 cholecalciferol (vitamin D3) 125 mcg (5,000 unit) capsule 125 mcg PO DAILY RF: 0 pantoprazole 20 mg tablet,delayed release (DR/EC) 20 mg PO DAILY PRN (Reason: Indigestion) RF: 0 oil or oregeno 10 ml PO PRN PRN (Reason: NOT SURE) RF: 0 ibuprofen 600 MG tablet 600 mg PO 4X/DAY PRN PRN (Reason: Fever) Qty: 40 RF: 0 ondansetron 4 MG tablet 4 mg PO Q8H PRN PRN (Reason: Nausea) Qty: 10 RF: 0 buspirone 10 mg Tablet 10 mg PO DAILY RF: 0 oxycodone-acetaminophen [oxycodone-acetaminophen] 1 TABLET tablet 2 tab PO Q8H PRN PRN (Reason: Pain) 7 Days Qty: 10 RF: 0 cephalexin [cephalexin] 500 MG capsule 500 mg PO Q12 3 Days Qty: 6 RF: 0 phenazopyridine [Pyridium] 200 MG tablet 200 mg PO TID PRN PRN (Reason: Bladder Spasms) 7 Days Qty: 30 RF: 0 Primary Care Provider: Ortiz Mohan Referrals: Ortiz Mohan MD [Primary Care Provider] - 1 Week if not improving Disposition Disposition: Home, Self Care
[2021-09-05 19:58] LABS: Absolute Lymphocyte Count 4.25 X10^3/uL (0.83-4.51); Absolute Neutrophil Count 3.8 X10^3/uL (2.0-7.7); Basophil# 0.05 X10^3/uL; Basophil% 0.6 % (0-1); Eosinophil# 0.07 X10^3/uL; Eosinophils% 0.8 % (0-5); Hematocrit 39.1 % (37-47); Hemoglobin 13.4 g/dL (12.0-15.0); Lymphocyte # 4.25 X10^3/ul (0.83-4.51); Mean Corp Hgb Conc 34.3 g/dL (32-36); Mean Corpuscular Hgb 29.9 pg (27.0-32.0); Mean Corpuscular Volume 87.3 fL (81-99); Mean Platelet Vol. 10.5 fl (6.2-12.0); Monocyte# 0.49 X10^3/uL; Monocyte% 5.6 % (0-10); NRBC Flagged by Analyzer 0 % (0-5); Neutrophil # 3.79 X10^3/uL (2.7-7.7); Neutrophil % 43.7 % (47-70); Platelet Count 334 K/mm3 (150-450); RBC Distribution Width CV 12.2 % (11.6-14.6); RBC Distribution Width SD 39.4 fl (35.1-43.9); Red Blood Count 4.48 M/mm3 (4.2-5.4); White Blood Count 8.7 K/mm3 (4.4-11.0)
[2021-09-05 20:16] LABS: ALB/GLOB Ratio 1.2 RATIO (0.9-2.4); AST(SGOT) 16 U/L (15-37); Alanine Aminotransfer ALT/SGPT 16 U/L (13-56); Albumin, Serum 4.1 g/dL (3.2-5.0); Alkaline Phosphatase 46 U/L (45-117); Anion Gap 5 (5-15); BUN 6 mg/dL (7-18); BUN/Creat Ratio 8.6 RATIO (10-20); Calcium,Total 9.3 mg/dL (8.5-10.1); Chloride 109 mmol/L (98-107); EST Glomerular Filtration Rate 106 mL/min (>60); Est Glom Filt Rate - Afr Amer 129 mL/min (>60); Estimated Creatinine Clearance 86.44 ml/min; Globulin 3.5 g/dL (2.2-4.2); Glucose 79 mg/dL (74-106); Lipase 80 U/L (73-393); Potassium 3.7 mmol/L (3.5-5.1); Protein, Total 7.6 g/dL (6.4-8.2); Sodium Level 140 mmol/L (136-145)
[2021-09-05] MEDS: Pantoprazole Sodium 40 MG Tablet PO (20:50)
== END 2021-09-05 20:53 | disposition home or self-care (01) ==
PROVIDERS: Emergency Provider Emergency Medicine; PCP Family Medicine; Visit Provider Emergency Medicine
DX: R10.13 Epigastric pain (principal); F41.9 Anxiety disorder, unspecified; F32.A Depression, unspecified; Z87.440 Personal history of urinary (tract) infections; Z79.899 Other long term (current) drug therapy; R11.0 Nausea
CPT/HCPCS: 80053; 83690; 85025; 93005; 99284; A4216

== ENCOUNTER → 2022-06-24 | Outpatient (CLI) | payer MEDICAID, SELFPAY ==
[2022-06-24 15:17] LABS: Absolute Lymphocyte Count 2.97 X10^3/uL (0.83-4.51); Basophil# 0.04 X10^3/uL; Basophil% 0.6 % (0-1); Eosinophil# 0.06 X10^3/uL; Eosinophils% 0.9 % (0-5); Hematocrit 42.7 % (37-47); Hemoglobin 14.4 g/dL (12.0-15.0); Lymphocyte # 2.97 X10^3/ul (0.83-4.51); Mean Corp Hgb Conc 33.7 g/dL (32-36); Mean Corpuscular Hgb 29.5 pg (27.0-32.0); Mean Corpuscular Volume 87.5 fL (81-99); Mean Platelet Vol. 10.5 fl (6.2-12.0); Monocyte# 0.39 X10^3/uL; NRBC Flagged by Analyzer 0 % (0-5); Neutrophil # 2.98 X10^3/uL (2.7-7.7); Neutrophil % 46.3 % (47-70); Platelet Count 457 K/mm3 (150-450); RBC Distribution Width CV 12.6 % (11.6-14.6); RBC Distribution Width SD 40.2 fl (35.1-43.9); Red Blood Count 4.88 M/mm3 (4.2-5.4); White Blood Count 6.5 K/mm3 (4.4-11.0)
[2022-06-24 15:18] LABS: ALB/GLOB Ratio 1.4 RATIO (0.9-2.4); AST(SGOT) 18 U/L (15-37); Alanine Aminotransfer ALT/SGPT 31 U/L (13-56); Albumin, Serum 4.4 g/dL (3.2-5.0); Alkaline Phosphatase 62 U/L (45-117); Anion Gap 6 (5-15); BUN 12 mg/dL (7-18); BUN/Creat Ratio 18.1 RATIO (10-20); Calcium,Total 9.7 mg/dL (8.5-10.1); Chloride 107 mmol/L (98-107); Creatinine, Serum 0.66 mg/dL (0.55-1.02); EST Glomerular Filtration Rate 112 mL/min (>60); Est Glom Filt Rate - Afr Amer 136 mL/min (>60); Ferritin 25 ng/mL (8-252); Globulin 3.2 g/dL (2.2-4.2); Glucose 77 mg/dL (74-106); Iron 95 ug/dL (50-170); Potassium 4.3 mmol/L (3.5-5.1); Protein, Total 7.6 g/dL (6.4-8.2); Sodium Level 140 mmol/L (136-145)
[2022-06-29 15:08] LABS: B. henselae IgG Negative titer (Neg:<1:320); B. henselae IgM Negative titer (Neg:<1:100); B. quintana IgG Negative titer (Neg:<1:320); Lyme IgG P18 Ab Absent (.); Lyme IgG P23 Ab Absent (.); Lyme IgG P28 Ab Absent (.); Lyme IgG P30 Ab Absent (.); Lyme IgG P39 Ab Absent (.); Lyme IgG P41 Ab Present (.); Lyme IgG P45 Ab Absent (.); Lyme IgG P58 Ab Absent (.); Lyme IgG P66 Ab Absent (.); Lyme IgG P93 Ab Absent (.); Lyme IgM P39 Ab Absent (.); Lyme IgM P41 Ab Present (.)
[2022-06-30 16:33] LABS: B. quintana IgM Negative titer (Neg:<1:100); CMV Acute Antibody IgM < 30.0 AU/mL (0.0-29.9); CMV Antibody IgG 0.74 U/mL (0.00-0.59); Lyme IgG WB Interpretation Negative (.); Lyme IgM WB Interpretation Positive (.)
[2022-06-30 16:36] LABS: Lyme IgM P23 Ab Present (.)
== END | disposition home or self-care (01) ==
PROVIDERS: PCP Family Medicine; Visit Provider Nurse Practitioner Family
DX: R53.82 Chronic fatigue, unspecified (principal); G89.4 Chronic pain syndrome; R53.1 Weakness; R51.9 Headache, unspecified; F41.9 Anxiety disorder, unspecified; R39.82 Chronic bladder pain; R10.2 Pelvic and perineal pain; R61 Generalized hyperhidrosis; K59.00 Constipation, unspecified; N94.10 Unspecified dyspareunia; R42 Dizziness and giddiness; R00.2 Palpitations; R06.02 Shortness of breath; R41.89 Other symptoms and signs involving cognitive functions and awareness; R11.11 Vomiting without nausea; G47.00 Insomnia, unspecified
CPT/HCPCS: 80053; 82728; 83540; 85025; 86611; 86617; 86644; 86645

== ENCOUNTER → 2022-07-20 | Outpatient (CLI) | payer MEDICAID, SELFPAY ==
[2022-07-20 16:38] LABS: Insulin 31.3 mU/L (2.6-37.6)
== END | disposition home or self-care (01) ==
PROVIDERS: PCP Family Medicine; Referring Provider Nurse Practitioner Family; Visit Provider Nurse Practitioner Family
DX: I95.1 Orthostatic hypotension (principal); R41.89 Other symptoms and signs involving cognitive functions and awareness; R61 Generalized hyperhidrosis; R53.1 Weakness
CPT/HCPCS: 83525

== ENCOUNTER → 2025-02-01 | Outpatient (CLI) | payer MEDICAID, SELFPAY ==
[2025-02-01 14:29] LABS: Hematocrit 38.7 % (37-47); Hemoglobin 13.5 g/dL (12.0-15.0); Immature Granulocytes Count 0.020 X10^3/uL (0.0-0.0); Mean Corp Hgb Conc 34.9 g/dL (32-36); Mean Corpuscular Volume 85.4 fL (81-99); Mean Platelet Vol. 10.1 fl (6.2-12.0); NRBC Flagged by Analyzer 0 % (0-5); Platelet Count 415 K/mm3 (150-450); RBC Distribution Width CV 12.5 % (11.6-14.6); RBC Distribution Width SD 38.6 fl (35.1-43.9); Red Blood Count 4.53 M/mm3 (4.2-5.4); White Blood Count 7.0 K/mm3 (4.4-11.0)
[2025-02-01 15:19] LABS: AST(SGOT) 16 U/L (<=31); Alanine Aminotransfer ALT/SGPT 12 U/L (<=34); Albumin, Serum 4.4 g/dL (3.5-5.0); Alkaline Phosphatase 60 U/L (35-104); Anion Gap 11 (5-15); BUN 12 mg/dL (4-19); BUN/Creat Ratio 21.0 RATIO (10-20); Calcium,Total 9.5 mg/dL (7.6-11.0); Carbon Dioxide 22.1 mmol/L (21.0-32.0); Chloride 104 mmol/L (98-108); Cholesterol 169 mg/dL (<=200); Free T3 3.2 pg/mL (2.18-3.98); Globulin 3.0 g/dL (2.2-4.2); Glucose 78 mg/dL (70-99); Low Density Lipoprotein Calc. 113 mg/dL; Magnesium 2.0 mg/dL (1.5-2.2); Potassium 4.2 mmol/L (3.3-5.1); Triglycerides 52 mg/dL; Very Low Density Lipoprotein 10 mg/dL (5-40); Vitamin B12 385 pg/mL (180-914); Vitamin D,25 Hydroxy 25.3 ng/mL (30-100); cholesterol:hdl ratio screen 3.69
[2025-02-01 15:25] LABS: FOLATES,SERUM (FOLIC ACID) 12.50 ng/mL (4.60-34.80)
[2025-02-03 09:09] LABS: CRP, High Sensitivity 1.58 mg/L (0.00-3.00); PROGESTERONE 4.5 ng/mL (.)
== END | disposition home or self-care (01) ==
PROVIDERS: PCP Family Medicine; Referring Provider Nurse Practitioner Family; Visit Provider Nurse Practitioner Family
DX: G90.9 Disorder of the autonomic nervous system, unspecified (principal); G89.4 Chronic pain syndrome; R53.1 Weakness; R39.82 Chronic bladder pain; R10.20 Pelvic and perineal pain unspecified side; R61 Generalized hyperhidrosis; K59.00 Constipation, unspecified; N94.10 Unspecified dyspareunia; A69.20 Lyme disease, unspecified; B60.09 Other babesiosis; G43.111 Migraine with aura, intractable, with status migrainosus; E28.9 Ovarian dysfunction, unspecified
CPT/HCPCS: 80053; 80061; 82306; 82607; 82627; 82670; 82746; 83036; 83525; 83735; 84144; 84403; 84439; 84443; 84481; 85025; 86141; 86617; 82626